=== PATIENT | male | born 1985 | race Two or more races ===

== ENCOUNTER 2024-08-28 23:19 | Emergency (ER) | payer SELFPAY ==
[2024-08-28 23:30] VITALS: BP 118/79; BP 136/95; PULSE 89; PULSE 97; RESP 22; TEMP 36.3; O2SAT 94; O2SAT 97
[2024-08-28 23:42] VITALS: BP 118/79; PULSE 89; RESP 22; TEMP 36.3; O2SAT 97; BMI 32.7
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
[2024-08-29 03:02] VITALS: BP 127/72; PULSE 89; RESP 16; TEMP 36.7; O2SAT 98
== END 2024-08-29 03:05 ==
PROVIDERS: Emergency Provider Internal Medicine
DX: S40.812A Abrasion of left upper arm, initial encounter (principal); S00.87XA Other superficial bite of other part of head, initial encounter; M79.602 Pain in left arm; R51.9 Headache, unspecified; Y04.1XXA Assault by human bite, initial encounter; Y93.9 Activity, unspecified; Y92.9 Unspecified place or not applicable; Y99.8 Other external cause status
CPT/HCPCS: 99285